=== PATIENT | male | born 1940 | race Caucasian/White ===

== ENCOUNTER → 2016-12-05 | Outpatient (CLI) | payer OTHER, BC ==
[~2016-12-05] MED LIST: ALLEGRA ALLERG180 MG PO; ALLEGRA180 MG PO; AMOXICILLIN500 MG PO; ANTIBIOTIC PO; ANTIVERT25 MG PO; ASPIRIN81 M1 PO; Antivert PO; BUPROBAN150 MG PO; CALCIO DEL MAR PO; CALCIUM 600-VI1 EACH PO; CALCIUM CARBON260 MG PO; CALCIUM600 MG PO; CARDIZEM30 MG PO; CENTRUM SILV1 TABLE1 PO; CENTRUM SILVER1 EAC3 PO; CENTRUM SILVER1 EACH PO; CLINDAMYCIN HC150 MG PO; CO Q-10100 MG PO; COLACE100 MG PO; Cardizem PO; Cepacol Lozenge, Sor MM; Cepacol Lozenge, Sor PO; Coumadin,Jantoven PO; D-VERT25 MG PO; DICLOFENAC SODI75 MG PO; DILT-XR120 MG PO; EFFEXOR50 MG PO; Ecotrin PO; FEXOFENADINE H180 M1 PO; FLOMAX0.4 MG PO; FLUOXETINE HCL PO; FLUOXETINE HCL40 MG PO; Flomax PO; HYDROCHLOROTHIA25 MG PO; Hydrodiuril,Oretic,E PO; Hytrin PO; LIPITOR80 MG PO; LO-DOSE ASPIRIN81 M2 PO; Lovenox SC; NORVASC10 MG PO; NORVASC5 MG PO; OMEGA 3 1,0001 EAC1 PO; OMEGA-31000 M1 PO; Ocean Nasal 0.65% BOTH NARES; Ocean Nasal 0.65% NS; PROBIOTIC1 EAC1 PO; PROzac PO; RANITIDINE HCL150 M1 PO; RANITIDINE HCL150 MG PO; RIMACTANE,RIFA300 MG PO; SENOKOT S,PE1 TABLET PO; Senokot S,Pericolace PO; TYLENOL WITH C1 EACH PO; TYLENOL/CODE1 TABLET PO; Theragran PO; Tums,OsCal PO; VITAMIN D31000 UNI2 PO; Vancomycin IV; Vicodin,Norco 5/325 PO; WELLBUTRIN XL150 MG PO; Wellbutrin PO; Wellbutrin SR PO; Zantac,Taladine PO; Zocor PO
== END | disposition home or self-care (01) ==
LOC: PICC 08:55
DX: L97.319 Non-pressure chronic ulcer of right ankle with unspecified severity (principal)
CPT/HCPCS: 76937

== ENCOUNTER → 2016-12-13 | Outpatient (CLI) | payer OTHER, BC | END | disposition home or self-care (01) | LOC: NUC 10:00 | DX: R93.7 Abnormal findings on diagnostic imaging of other parts of musculoskeletal system (principal); L03.115 Cellulitis of right lower limb; L98.0 Pyogenic granuloma; I87.313 Chronic venous hypertension (idiopathic) with ulcer of bilateral lower extremity | CPT/HCPCS: 78315; 78999; A9503 ==